=== PATIENT | male | born 1970 | race Caucasian/White ===

== ENCOUNTER → 2016-11-04 | Outpatient (CLI) | payer OTHER ==
--- NOTE | 2016-11-04 09:37 | RAD ---
PA and lateral chest radiographs 11/04/2016 Clinical History: Chest pain for years. PA and lateral digital radiographs of the chest were obtained. Comparison study is dated 08/17/2013. The cardiac and mediastinal silhouettes are within normal limits in size and configuration. No pulmonary infiltrate is seen. No pleural effusion or pneumothorax is noted. The osseous structures are grossly intact. Impression: No radiographic evidence of active cardiopulmonary disease.
== END | disposition home or self-care (01) ==
LOC: DXRADRC 09:01
PROVIDERS: ATTEND Physician Assistant
DX: R07.9 Chest pain, unspecified (principal)
CPT/HCPCS: 71020